=== PATIENT | male | born 1955 | race Caucasian/White ===

== ENCOUNTER 2019-03-13 05:57 | Day surgery (SDC) | payer OTHER ==
[~2019-03-13] VITALS: Ht 165.1 cm; Wt 82.0 kg
[2019-03-13] VITALS (19 sets, daily range): BP systolic 109–142; BP diastolic 65–99; PULSE 78–99; RESP 16–27; Ht 165.1 cm; Wt 82.0 kg
[~2019-03-13 05:57] MED LIST: ASPI-817 PO; CIPR500T4 PO; HYDR25TA6 PO; LOSA25TA12 PO; METR500T PO; SIMV40TA2 PO; TRAM50TA2 PO
[2019-03-13] MEDS ORDERED: EPINEPHrine 1 MG/ML 30 ML INJ ONE (07:34)
--- NOTE | 2019-03-13 07:57 | OPPN ---
Date/Time of Note Date/Time of Note DATE: 03/13/19 TIME: 07:57 ANGELICA JOHNSON MD Mar 13, 2019 07:57
--- NOTE | 2019-03-13 07:57 | PREAC ---
Date/Time of Note Date/Time of Note DATE: 03/13/19 TIME: 07:46 Anesthesia Eval and Record Evaluation Time Pre-Procedure Interview DATE: 03/13/19 TIME: 07:46 Age 64 Sex male NPO: 8 hrs Preoperative diagnosis artheitis Planned procedure left shoulder arthroscopy Past Medical History Past Medical History: None Cardio: HTN Pulm: Asthma, Other (6 months ago no ER) Musculoskeletal: Osteoarthritis Surgery & Anesthesia Issues Aspiration risk, No known issue Meds Anticoagulation: No Beta Christine within 24 hr: No Reason Beta Christine not given: Asthma Reported Medications Hydrochlorothiazide* (Hydrochlorothiazide*) 25 Mg Tab, 25 MG PO DAILY, #30 TAB 03/13/19 Simvastatin* (Zocor*) 40 Mg Tablet, 40 MG PO QHS, #30 TAB 03/13/19 Losartan Potassium* (Losartan Potassium*) 25 Mg Tablet, 25 MG PO DAILY, TAB 03/13/19 Aspirin* (Aspirin* EC) 81 Mg Tablet.dr, 81 MG PO DAILY, TAB 03/13/19 Discontinued Scripts Tramadol HCl (Tramadol HCl) 50 Mg Tablet, 50 MG PO Q4 PRN for PAIN, #20 TAB Prov:ADIS ANGELES S. 10/26/15 Metronidazole* (Flagyl*) 500 Mg Tablet, 500 MG PO BID for 7 Days, TAB Prov:ADIS ANGELES S. 10/26/15 Ciprofloxacin Hcl* (Ciprofloxacin Hcl*) 500 Mg Tablet, 500 MG PO BID for 7 Days, TAB Prov:ADIS ANGELES S. 10/26/15 Meds reviewed: Yes Allergies Coded Allergies: penicillin (Verified Allergy, Unknown, 03/13/19) Allergies Reviewed: Yes Labs/Studies Labs Reviewed: Reviewed by anesthesiologist test: N/A Studies: ECG Pre-procedure Exam Last vitals Vital Signs Date Temp Pulse Resp B/P (MAP) Pulse Ox O2 O2 Flow FiO2 Time Delivery Rate 03/13/19 97.5 98 16 140/99 96 Room Air 07:09 (113) Airway: Adequate mouth opening Mallampati: Mallampati III Teeth: Normal Lung: Normal Heart: Normal Anticipated Difficutly with IV: Anticipate Difficult IV Access ASA Physical Status ASA physical status: 3 Emergency: None Planned Anesthetic General/MAC: ETT, LMA Nerve block: Other (interscalene if needed after. discussed and accepted) Planned Pain Management Single shot nerve block (interscalene if needed), Parenteral pain med Pre-operative Attestations Prior to commencing anesthesia and surgery, the patient was re-evaluated, there was verification of: *The patient's identity *The results of appropriate recent lab work and preoperative vital signs *The above evaluation not changing prior to induction *Anesthetic plan, risk benefits, alternative and complications discussed with patient/family; questions answered; patient/family understands, accepts and wishes to proceed. ANGELICA JOHNSON MD Mar 13, 2019 07:57
--- NOTE | 2019-03-13 08:23 | HPN ---
Date/Time of Note Date/Time of Note DATE: 03/13/19 TIME: 08:23 Interval H&P Admission Note Pt. seen H&P reviewed: No system changes RADHA JACKSON MD Mar 13, 2019 08:23
[2019-03-13] MEDS ORDERED: ROPIVACAINE 0.5 % 30 ML VIAL ONE (08:38)
[2019-03-13] MEDS ORDERED: BUPIVACAINE 0.25% (MPF) 30 ML INJ ONE (08:39)
[2019-03-13] MEDS ORDERED: SODIUM CL BACTERIOSTATIC 30 ML INJ ONE (08:41)
[2019-03-13] MEDS ORDERED: morphine 2 MG INJ IV PRN (12:00)
[2019-03-13] MEDS ORDERED: HYDROCODONE/APAP (5/325) TAB PO PRN ×2 (12:00)
[2019-03-13] MEDS ORDERED: ONDANSETRON 4 MG INJ IV PRN ×2 (12:00→13:00)
--- NOTE | 2019-03-13 12:12 | OPR ---
Date/Time of Note Date/Time of Note DATE: 03/13/19 TIME: 12:03 Operative Report Preoperative Diagnosis 1. Left shoulder adhesive capsulitis 2. Left shoulder rotator cuff tear 3. Impingement syndrome Postoperative Diagnosis Same Operation/Procedure Performed 1. Left shoulder arthroscopy 2. Capsular release 3. Biceps tenotomy 4. Rotator cuff repair 5. Subacromial decompression Surgeon see signature line Assayer Helper None Anesthesia Type: general, other (Interscalene block) Estimated Blood Loss: minimal Transfusion none Specimen None Grafts/Implants Arthrex anchors, speed bridge Complications none Pt Condition Post Procedure: stable Disposition: PACU Indications This is a 64-year-old male who has had stiffness and pain in his left shoulder for the last 1 year he has failed nonoperative treatment. He now presents with the above listed procedure. Risks and benefits were adequately discussed including nerve damage continued stiffness continued pain, re-tear. Informed consent was obtained Procedure Description This correct shoulder was identified in the preoperative area. He was brought back to the operating room. He had a interscalene block administered. He then had general endotracheal anesthesia. He was positioned on the shoulder table in beach chair position. The left upper extremity and shoulder were prepped and draped in essential manner. Standard timeout was performed. A standard posterior portal was utilized. Diagnostic arthroscopy was performed. The subscap tendon biceps tendon were intact articular surfaces were intact there was a focal full-thickness tear through the mid part of the supraspinatus tendon. At this point I established an anterior and anterolateral portals with cannulas I then used an ArthroWand to to release the anterior and posterior aspect of the subscap fully releasing it I then cut the coracohumeral ligament I then released the capsule going from front to back of the glenoid on the inferior side I was careful to stay right on bone so as not to damage the axillary nerve. I then mobilized the arm I had external rotation to 75 degrees and forward flexion to 170 degrees. With the arm in 90 degrees of abduction I had nearly 90 degrees of external rotation and 75 degrees of internal rotation. At this point I turned my attention to the rotator cuff tear. The tear was converted to a full-thickness tear. The footprint was debrided. I then put to speed bridge anchors at the articular margin. At this point I went into the subacromial space of the bursectomy of a moderate sized spur on the undersurface the acromion. I then used a scorpion device to penetrate the cuff the anterior ankle was penetrated anteriorly the posterior anchor was penetrated posteriorly I then crisscrossed the sutures and then he is a double row technique and put 2 lateral anchors allowing the cuff to be compressed at them and on the articular side and the footprint was fully covered with a watertight repair. At this point a, instruments close the portal sites with 2-0 nylon sutures. Dry sterile dressings were applied. The patient was placed in a sling. He was then extubated and transported to recovery in stable condition. RADHA JACKSON MD Mar 13, 2019 12:12
--- NOTE | 2019-03-13 12:33 | PAC ---
Date/Time of Note Date/Time of Note DATE: 03/13/19 TIME: 12:32 Post-Anesthesia Notes Post-Anesthesia Note Last documented vital signs Vital Signs Date Temp Pulse Resp B/P (MAP) Pulse Ox O2 O2 Flow FiO2 Time Delivery Rate 03/13/19 97.5 98 16 140/99 96 Room Air 07:09 (113) Activity: WNL Respiratory function: WNL Cardiovascular function: WNL Mental status: Baseline Pain reasonably controlled: Yes Hydration appropriate: Yes Nausea/Vomiting absent: Yes ANGELICA JOHNSON MD Mar 13, 2019 12:33
[2019-03-13] MEDS: HYDROmorphONE 1 MG/5 ML IV SYRINGE IV PRN ×2 (12:58→13:04)
[2019-03-13] MEDS ORDERED: LABETALOL HCL 20MG INJ IV PRN (13:00)
[2019-03-13] MEDS ORDERED: MEPERIDINE 25 MG INJ IV PRN (13:00)
[2019-03-13] MEDS ORDERED: HYDROmorphONE 1 MG/5 ML IV SYRINGE IV PRN (13:00)
[2019-03-13] MEDS ORDERED: EPHEDrine 25 MG/5 ML SYG IV PRN (13:00)
[2019-03-13] MEDS ORDERED: OXYCODONE/ACETAMINOPHEN (5/325) TAB PO PRN (13:00)
[2019-03-13] MEDS ORDERED: ALBUMIN HUMAN 5% 250 ML IV PRN (13:00)
[2019-03-13] MEDS ORDERED: MIDAZOLAM 1 MG/ML 2 ML INJ IV PRN (13:00)
[2019-03-13] MEDS ORDERED: ALBUTEROL 0.083% (NEB) 2.5 MG/3 ML AMP HHN PRN (13:00)
[2019-03-13] MEDS ORDERED: hydrALAzine 20 MG INJ IV PRN (13:00)
[2019-03-13] MEDS ORDERED: METOCLOPRAMIDE 10 MG INJ IV PRN (13:00)
[2019-03-16] MEDS ORDERED: LIDOCAINE 100 MG SYRINGE ONE (00:10)
[2019-03-16] MEDS ORDERED: PROPOFOL 20 ML ONE (00:10)
[2019-03-16] MEDS ORDERED: ROCURONIUM 50 MG INJ ONE (00:10)
[2019-03-16] MEDS ORDERED: MIDAZOLAM 1 MG/ML 2 ML INJ ONE (00:11)
[2019-03-16] MEDS ORDERED: LABETALOL HCL 20MG INJ ONE (00:11)
[2019-03-16] MEDS ORDERED: PHENYLephrine 10 MG INJ ONE (00:11)
[2019-03-16] MEDS ORDERED: FENTAnyl 50 MCG/ML VIAL ONE ×2 (00:11)
[2019-03-16] MEDS ORDERED: DEXAMETHASONE 4 MG/ML 5 ML INJ ONE (00:11)
[2019-03-16] MEDS ORDERED: CLINDAMYCIN 900 MG/D5W (PMX) 50 ML IVPB ONE (00:11)
[2019-03-16] MEDS ORDERED: EPHEDrine 25 MG/5 ML SYG ONE (00:11)
[2019-03-16] MEDS ORDERED: METOCLOPRAMIDE 10 MG INJ ONE (00:11)
[2019-03-16] MEDS ORDERED: ONDANSETRON 4 MG INJ ONE (00:11)
== END 2019-03-13 14:32 | disposition home or self-care (01) ==
LOC: SDS 05:57
PROVIDERS: ATTEND Specialist
DX: M75.02 Adhesive capsulitis of left shoulder (principal); M75.102 Unspecified rotator cuff tear or rupture of left shoulder, not specified as traumatic; M25.812 Other specified joint disorders, left shoulder; I10 Essential (primary) hypertension; J45.909 Unspecified asthma, uncomplicated
CPT/HCPCS: 29826; 29827; 29828; J0171; J1170; J2795; Z7512; Z7610; J1100; J2001; J2250; J2370; J2765; J3010